=== PATIENT | male | born 1960 | race Caucasian/White ===

== ENCOUNTER 2024-03-25 20:41 | Emergency (ER) | payer BC ==
[~2024-03-25] VITALS: Ht 177.8 cm; Wt 104.5 kg
[2024-03-25 20:50] VITALS: TEMP 98.6
[2024-03-25] MEDS: UNRESOLVED CLARIFICATION ENTRY XX STA (22:36)
[2024-03-25] MEDS: cefTRIAXone SOD 1 GM in DEXTROSE 5% (D5W) ADV/MINI-BAG 50 ML IV ONE (22:47)
[2024-03-25 23:46] VITALS: BP 170/103
[2024-03-25 23:56] VITALS: O2SAT 96
== END 2024-03-26 00:25 | disposition home or self-care (01) ==
LOC: M ED 20:41 → EDBD 20:41 → M ED 03-26 00:25
DX: R33.9 Retention of urine, unspecified (principal); I10 Essential (primary) hypertension; N40.0 Benign prostatic hyperplasia without lower urinary tract symptoms; E78.5 Hyperlipidemia, unspecified
CPT/HCPCS: 96374; 99284; J0696

== ENCOUNTER → 2025-04-12 | Outpatient (REF) | payer MEDICARE ==
[2025-04-12 14:04] LABS: APPEARANCE, URINE CLOUDY (CLEAR); BACTERIA, URINE AUTO NEGATIVE (NEGATIVE); BILIRUBIN, URINE AUTO NEGATIVE (NEGATIVE); BLOOD, URINE BLOOD 3+ (NEGATIVE); GLUCOSE, URINE (UA) AUTO NEGATIVE (NEGATIVE); KETONE, URINE AUTO NEGATIVE (NEGATIVE); LEUKOCYTE ESTERASE, URINE AUTO 2+ (NEGATIVE); MUCUS, URINE SMALL (NEGATIVE); NITRITE, URINE AUTO NEGATIVE (NEGATIVE); PROTEIN, URINE AUTO 2+ mg/dL (NEGATIVE); RBC, URINE AUTO TNTC /HPF (0-3); SPECIFIC GRAVITY URINE AUTO 1.018 (1.002-1.035); SQUAMOUS EPITHELIAL CELL UR AU 1 /HPF (0-6); UROBILINOGEN, URINE AUTO 2.0 mg/dL (0.0-2.0); WBC, URINE AUTO TNTC /HPF (0-3)
== END ==
LOC: M SMT 13:09
PROVIDERS: ATTEND Urology
DX: N39.0 Urinary tract infection, site not specified (principal)